=== PATIENT | male | born 1970 ===

== ENCOUNTER 2016-12-10 03:06 | Emergency (ER) | payer SELFPAY ==
[2016-12-10] MEDS ORDERED: HYDROcodone/Acetaminophen 10/325 mg Tablet ONE ×2 (03:26→04:03)
[2016-12-10] MEDS ORDERED: Dicyclomine 20 MG TAB ONE ×2 (03:27→04:04)
[2016-12-10] MEDS ORDERED: Ketorolac Tromethamine 30 MG/ML VIAL ONE (03:27)
[2016-12-10 03:28] LABS: Bilirubin Negative (Negative); Blood, Urine Negative (Negative); Clarity Clear (Clear); Glucose, Urine (Dipstick) Negative (Negative); Leukocyte Negative (Negative); Nitrite Negative (Negative); Protein, Urine (Dipstick) Negative (Neg-Trace); Specific Gravity, Urine 1.025 (1.005-1.030); Urobilinogen 0.2 mg/dL (0.2-1.0); pH, Urine 5.5 (5.0-9.0)
[2016-12-10] MEDS ORDERED: Ondansetron ODT 4 MG TAB ONE (03:31)
--- NOTE | 2016-12-10 07:43 | CT ---
PRELIMINARY REPORT/[facility]/EMERGENCY AFTER HOURS PROCEDURE: EXAM: CT Abdomen and Pelvis Without Intravenous Contrast CLINICAL HISTORY: 46 years old, male; Pain; Abdominal pain; Flank; Left; Patient HX: Left flank pain TECHNIQUE: Axial computed tomography images of the abdomen and pelvis without intravenous contrast. COMPARISON: No relevant prior studies available. FINDINGS: The lung bases are clear. Right kidney: 3 or 4 right intrarenal calculi. No hydronephrosis or visible mass. No hydroureter or visible ureteral calculus. Left kidney: 4 or 5 left intrarenal calculi. Very mild left hydronephrosis. There is a 3-4 mm proximal left ureteral calculus, about 3 cm inferior to the UPJ. The calculus lies at the L4-5 disc space. No definite gallbladder abnormality by CT. No biliary tree dilation. There is fatty infiltration of the liver. Unremarkable appearance of the spleen, adrenal glands, and pancreas. No free air, ascites, or bowel distention. Small umbilical hernia, containing only fat. No evidence for abdominal aortic aneurysm. No retroperitoneal adenopathy. CT pelvis: Urinary bladder appears essentially unremarkable by CT. The appendix is visualized and appears normal. There are no CT findings to strongly suggest diverticulitis. No abnormal mass or fluid collection in the pelvis. IMPRESSION: There is a 3-4 mm proximal left ureteral calculus, details above. Very mild left hydronephrosis. Bilateral intrarenal calculi. No diverticulitis. Normal appendix. Other findings discussed above. Thank you for allowing us to participate in the care of your patient. Dictated and Authenticated by: Armani Avila MD 12/10/2016 4:23 AM Central Time ([place] \T\ [place]) FINAL REPORT CT ABDOMEN AND PELVIS WITHOUT CONTRAST: Date: 12/10/[address] was done for evaluation of left flank pain. Axial slices were acquired, then poole l and sagittal reconstructions were done. FINDINGS: Small, nonobstructing calculi are seen in each kidney. In addition, there is a 3.0 mm mid left urete ral calculus that is causing minimal left hydronephrosis. The lung bases are clear. No infiltrate or effusion was seen. Diffuse fatty infiltration of the live r noted. The hepatic size is slightly generous. The spleen is normal in size. No gallbladder calcifi cations seen. The adrenal glands and aorta show no acute findings. The bowel appears normal with no sign of inflammatory change, wall thickening, or other acute findin gs. The appendix appears normal. No free air or free fluid seen. CT of the pelvis show no pelvic masses, fluid collections, or inflammatory changes. IMPRESSION: 1. Bilateral renal calculi. 2. 3.0 mm mid left ureteral calculus causing very minimal left hydronephrosis. The calculus is loca per at approximately the L4-L5 level. Report in agreement with preliminary reading by [facility]. POS: HOME
== END 2016-12-10 04:38 | disposition home or self-care (01) ==
LOC: BURERS 03:06
DX: N13.2 Hydronephrosis with renal and ureteral calculous obstruction (principal); Z87.442 Personal history of urinary calculi
CPT/HCPCS: 74176; 81003; 96372; J1885; Q0162